=== PATIENT | female | born 1995 | race Caucasian/White ===

== ENCOUNTER 2024-09-27 05:37 | Inpatient (IN) | payer BC ==
[2024-09-27 06:02] VITALS: BMI 25.0
[2024-09-27] MEDS ORDERED: hydrALAZINE 20 MG/ML VIAL SLOW IVP PRN ×2 (06:21→08:52)
[2024-09-27] MEDS ORDERED: Promethazine HCl 25 MG/ML VIAL IM PRN (06:21)
[2024-09-27] MEDS ORDERED: Lidocaine 1% (PF) 30 ML VIAL SC PRN (06:21)
[2024-09-27] MEDS ORDERED: Ondansetron PF 4 MG/2 ML Vial IVP PRN (06:21)
[2024-09-27] MEDS ORDERED: Tranexamic Acid 1,000 MG/10 ML VIAL IVP PRN (06:22)
[2024-09-27] MEDS ORDERED: Diphenoxylate HCl/Atropine Tablet PO PRN (06:22)
[2024-09-27] MEDS ORDERED: Methylergonovine 0.2 MG/ML VIAL IM PRN ×2 (06:22→08:52)
[2024-09-27] MEDS ORDERED: Ibuprofen 800 MG TAB PO PRN (06:22)
[2024-09-27] MEDS ORDERED: Misoprostol 200 MCG TAB PR PRN (06:22)
[2024-09-27] MEDS ORDERED: Carboprost 250 MCG/ML AMP IM PRN (06:22)
[2024-09-27] MEDS ORDERED: Acetaminophen 500 MG TAB PO PRN (06:22)
[2024-09-27] MEDS ORDERED: Oxytocin 30 units/NS 500 ML 500 ML IV SCH ×3 (06:30→08:52)
[2024-09-27] MEDS ORDERED: Lactated Ringer's 1,000 ML IV SCH (06:30)
[2024-09-27 06:34] LABS: Hematocrit 34.9 % (34.9-44.5); Hemoglobin 12.2 g/dL (12.0-15.5); Mean Corpuscular Hemoglobin 31.5 pg (27.0-33.0); Mean Corpuscular Volume 90.2 fL (81.6-98.3); Mean Platelet Volume 9.7 fL (7.4-10.4); Platelet Count 234 10x3/uL (150-450); RBC Distribution Width 12.3 % (11.5-14.5); Red Blood Cell (RBC) Count 3.87 10x6/uL (3.90-5.03); White Blood Cell (WBC) Count 10.6 10x3/uL (3.5-10.5)
[2024-09-27 07:29] LABS: Syphilis Antibody Nonreactive (Nonreactive); Syphilis Antibody Index 0.06 S/CO (<1.00 Non-Reactive)
[2024-09-27 07:31] LABS: HBsAg Index 0.27 S/CO (0-0.99); Hep B Surf Ag - L&D Non-Reactive S/CO (NonReactive)
[2024-09-27] MEDS ORDERED: HYDROcodone/Acetaminophen 5/325 mg Tablet PO PRN ×2 (08:52)
[2024-09-27] MEDS ORDERED: Benzocaine-Menthol 82.5 ML CAN TOP PRN (08:52)
[2024-09-27] MEDS ORDERED: Bisacodyl 10 MG SUPP PR PRN (08:52)
[2024-09-27] MEDS ORDERED: Milk Of Magnesia 30 ML UDCUP PO PRN (08:52)
[2024-09-27] MEDS ORDERED: Boostrix 0.5 ML (Tdap) VIAL (>/=7 yrs of age) IM ONE (08:52)
[2024-09-27] MEDS ORDERED: Misoprostol 200 MCG TAB VAG PRN (08:52)
[2024-09-27] MEDS ORDERED: Lanolin Ointment 7 GM TUBE TOP PRN (08:52)
[2024-09-27] MEDS: Ibuprofen 800 MG TAB PO SCH (09:38)
[2024-09-27] MEDS: Prenatal Vitamin 1 TAB PO SCH (13:23)
[2024-09-27] MEDS: Ferrous Sulfate 325 MG TAB PO SCH ×2 (13:23)
[2024-09-27] MEDS: Docusate 100 MG CAP PO SCH (13:23)
[2024-09-27] MEDS: Acetaminophen 500 MG TAB PO PRN (14:15)
[2024-09-28 09:11] VITALS: BP 117/65; TEMP 98
== END 2024-09-28 13:10 | disposition home or self-care (01) | DRG 807 ==
LOC: CSHLD 05:37 → CSHPP 09:55
PROVIDERS: ADMIT Obstetrics & Gynecology; ATTEND Obstetrics & Gynecology
PROC: 10E0XZZ Delivery of Products of Conception, External Approach (ICD-10-PCS; principal; 2024-09-27)
PROC: 3E0234Z Introduction of Serum, Toxoid and Vaccine into Muscle, Percutaneous Approach (ICD-10-PCS; 2024-09-27)
DX: O48.0 Post-term pregnancy (principal); Z37.0 Single live birth; Z3A.40 40 weeks gestation of pregnancy
CPT/HCPCS: 36415; 85027; 85461; 86780; 86850; 86870; 86900; 86901; 87340; 90384; 96372; 99285